=== PATIENT | female | born 1940 | race Caucasian/White ===

== ENCOUNTER → 2024-04-27 07:01 | Outpatient (REF) | payer MEDICARE, SELFPAY | LOC: PAVMRI 07:01 | PROVIDERS: ATTENDING PHYSICIAN Ophthalmology; FAMILY PHYSICIAN Internal Medicine | DX: H53.2 Diplopia (principal) | CPT/HCPCS: 70543; 70553; A9575 ==

== ENCOUNTER → 2024-12-19 13:01 | Outpatient (REF) | payer MEDICARE, SELFPAY | LOC: HWRCS 13:01 | PROVIDERS: ATTENDING PHYSICIAN Internal Medicine Cardiovascular Disease; FAMILY PHYSICIAN Nurse Practitioner | DX: I10 Essential (primary) hypertension (principal); I48.0 Paroxysmal atrial fibrillation | CPT/HCPCS: 93306 ==

== ENCOUNTER → 2024-12-26 14:22 | Outpatient (REF) | payer MEDICARE, SELFPAY | LOC: DHSLP 14:22 | PROVIDERS: ATTENDING PHYSICIAN Internal Medicine Cardiovascular Disease; FAMILY PHYSICIAN Internal Medicine | DX: G47.30 Sleep apnea, unspecified (principal); R06.83 Snoring | CPT/HCPCS: 95800 ==

== ENCOUNTER → 2024-12-28 08:45 | Outpatient (REF) | payer MEDICARE, SELFPAY | LOC: PAVMRI 08:45 | PROVIDERS: ATTENDING PHYSICIAN Internal Medicine Cardiovascular Disease; FAMILY PHYSICIAN Internal Medicine | DX: R94.31 Abnormal electrocardiogram [ECG] [EKG] (principal); I48.0 Paroxysmal atrial fibrillation | CPT/HCPCS: 75561; 75565; A9585 ==